=== PATIENT | male | born 2000 | race Caucasian/White ===

== ENCOUNTER 2023-06-21 08:27 | Emergency (ER) | payer BC, SELFPAY ==
[2023-06-21] VITALS (12 sets, daily range): BP systolic 130–159; BP diastolic 71–93; PULSE 99–124; RESP 12–24; TEMP 37.1; O2SAT 97–100; BMI 35.9
--- NOTE | 2023-06-21 08:44 | ECG_ITS ---
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
[2023-06-21 09:19] LABS: Basophils Absolute Auto 0.1 10^3/uL (0.0-0.1); Basophils Percent Auto 0.8 % (0.2-2.0); Eosinophils Absolute Auto 0.1 10^3/uL (0.0-0.7); Eosinophils Percent Auto 0.5 % (0.9-7.0); Hematocrit 45.8 % (42.0-54.0); Hemoglobin 15.6 g/dL (14.0-18.0); Immature Granulocytes Abs Auto 0.04 10^3/uL (0.00-0.03); Immature Granulocytes Pct Auto 0.4 % (0.0-0.5); Lymphocytes Absolute Auto 1.3 10^3/uL (1.2-3.8); Lymphocytes Percent Auto 14.1 % (20.5-60.0); Mean Corpuscular HGB Conc 34.1 g/dL (29.9-35.2); Mean Corpuscular Hemoglobin 29.9 pg (25.9-34.0); Mean Corpuscular Volume 87.7 fL (80.0-94.0); Mean Platelet Volume 9.7 fL (9.5-13.5); Monocytes Absolute Auto 0.6 10^3/uL (0.3-0.8); Monocytes Percent Auto 6.3 % (1.7-12.0); Neutrophils Absolute Auto 7.3 10^3/uL (1.4-6.5); Neutrophils Percent Auto 77.9 % (43.0-75.0); Platelet Count 324 10^3/uL (150-450); Red Blood Count 5.22 10^6/uL (4.70-6.10); Red Cell Distribution Width 12.9 % (11.0-15.0); White Blood Count 9.3 10^3/uL (4.0-11.0)
[2023-06-21 09:30] LABS: Anion Gap 15.2; BUN Creatinine Ratio 14.7; Calcium 9.7 mg/dL (8.5-10.1); Carbon Dioxide 26.8 mmol/L (21.0-32.0); Chloride 103 mmol/L (98-107); Estimated GFR (African America >60 (>=60); Estimated GFR (Non-African Ame >60 (>=60); Glucose 112 mg/dL (74-106); Sodium 141 mmol/L (136-145)
--- NOTE | 2023-06-21 09:44 | ED.GENADUL1 ---
HPI - General Adult General Chief complaint: Recheck/Abnormal Lab/Rx Stated complaint: BLOOD PRESSURE HIGH Time Seen by Provider: 06/21/23 08:34 Source: patient Mode of arrival: walk-in Limitations: no limitations History of Present Illness HPI narrative: 23-year-old male presented for elevated blood pressure. He does not have a personal history of hypertension. He checked it at home and it was quite high so he came in here. He states sometimes when he goes to see a doctor his blood pressure goes up as does his heart rate. He does not have any physical complaints such as fever or vomiting or chest pain. He is accompanied by his mother. Related Data Allergies Allergy/AdvReac Type Severity Reaction Status Date / Time amoxicillin Allergy Unknown Verified 06/21/23 08:32 Review of Systems ROS Narrative A ten point review of systems is negative except as noted above. Exam Narrative Exam Narrative: Nurses note and vital signs reviewed and patient is not hypoxic. General: The patient appears well and in no apparent distress. Patient is resting comfortably on cart. Skin: Warm, dry, no pallor noted. There is no rash noted. Head: Normocephalic, atraumatic Eye: Normal conjunctiva, no drainage Ears, Nose, Mouth, and Throat: oral mucosa is moist. Nares patent. Cardiovascular: Regular Rate and Rhythm, tachycardic Respiratory: Patient is in no distress, no accessory muscle use, lungs are clear to auscultation, no wheezing, rales or rhonchi Back: non-tender GI: Soft and nontender Musculoskeletal: The patient has no evidence of calf tenderness, no pitting edema, symmetrical pulses noted bilaterally Neurological: A&O, normal speech Psychiatric: Cooperative Constitutional Vital Signs, click to edit/add: Last Vital Signs Temp 98.8 F 06/21/23 08:32 Pulse 101 H 06/21/23 09:20 Resp 18 06/21/23 09:20 BP 136/93 H 06/21/23 09:15 Pulse Ox 98 06/21/23 09:20 O2 Del Method Room Air 06/21/23 08:32 Course Vital Signs Vital signs: Vital Signs Temperature 98.8 F 06/21/23 08:32 Pulse Rate 120 H 06/21/23 08:32 Respiratory Rate 16 06/21/23 08:32 Blood Pressure 159/80 H 06/21/23 08:32 Pulse Oximetry 100 06/21/23 08:32 Oxygen Delivery Method Room Air 06/21/23 08:32 Temperature 98.8 F 06/21/23 08:32 Pulse Rate 101 H 06/21/23 09:20 Respiratory Rate 18 06/21/23 09:20 Blood Pressure 136/93 H 06/21/23 09:15 Pulse Oximetry 98 06/21/23 09:20 Oxygen Delivery Method Room Air 06/21/23 08:32 Medical Decision Making MDM Narrative Medical decision making narrative: Repeat blood pressure readings are much improved and his heart rate has come down. He has a new PCP appointment in 2 weeks which he will keep. Treatment diagnosis and follow-up were discussed with the patient and his mother Differential Diagnosis Differential Diagnosis: Hypertension, anxiety Lab Data Lab results reviewed: Yes I reviewed the patient's lab results Labs: Lab Results 06/21/23 Range/Units 09:10 WBC 9.3 (4.0-11.0) 10^3/uL RBC 5.22 (4.70-6.10) 10^6/uL Hgb 15.6 (14.0-18.0) g/dL Hct 45.8 (42.0-54.0) % MCV 87.7 (80.0-94.0) fL MCH 29.9 (25.9-34.0) pg MCHC 34.1 (29.9-35.2) g/dL RDW 12.9 (11.0-15.0) % Plt Count 324 (150-450) 10^3/uL MPV 9.7 (9.5-13.5) fL Neut % (Auto) 77.9 H (43.0-75.0) % Lymph % (Auto) 14.1 L (20.5-60.0) % Gilchrist % (Auto) 6.3 (1.7-12.0) % Eos % (Auto) 0.5 L (0.9-7.0) % Baso % (Auto) 0.8 (0.2-2.0) % Neut # (Auto) 7.3 H (1.4-6.5) 10^3/uL Lymph # (Auto) 1.3 (1.2-3.8) 10^3/uL Gilchrist # (Auto) 0.6 (0.3-0.8) 10^3/uL Eos # (Auto) 0.1 (0.0-0.7) 10^3/uL Baso # (Auto) 0.1 (0.0-0.1) 10^3/uL Abs Immat Gran (auto) 0.04 H (0.00-0.03) 10^3/uL Imm/Tot Granulo (auto) 0.4 (0.0-0.5) % Sodium 141 (136-145) mmol/L Potassium 4.0 (3.5-5.1) mmol/L Chloride 103 (98-107) mmol/L Carbon Dioxide 26.8 (21.0-32.0) mmol/L Anion Gap 15.2 BUN 15.0 (7.0-18.0) mg/dL Creatinine 1.02 (0.70-1.30) mg/dL Est GFR ( Amer) >60 (>=60) Est GFR (Non-Af Amer) >60 (>=60) BUN/Creatinine Ratio 14.7 Glucose 112 H (74-106) mg/dL Calcium 9.7 (8.5-10.1) mg/dL ECG Data Attestation: I personally reviewed and interpreted this ECG as follows: (EKG on my interpretation shows sinus tachycardia with a rate of 117.) Discharge Plan Discharge Chief Complaint: Recheck/Abnormal Lab/Rx Clinical Impression: Elevated blood pressure reading Patient Disposition: Home, Self-Care Time of Disposition Decision: 09:43 Condition: Good Mode of Transportation: Private Vehicle Instructions: Hypertension (ED) Additional Instructions: Keep your new PCP appointment in 2 weeks to have your blood pressure rechecked Stand Alone Forms: Portal Instructions Referrals: Physician,Non-Staff, MD [Primary Care Provider] - 1 week
== END 2023-06-21 09:53 | disposition home or self-care (01) ==
PROVIDERS: Emergency Provider Emergency Medicine
DX: R03.0 Elevated blood-pressure reading, without diagnosis of hypertension (principal)
CPT/HCPCS: 36415; 80048; 85025; 93005; 99284

== ENCOUNTER 2025-04-28 07:35 | Emergency (ER) | payer OTHER, SELFPAY ==
[2025-04-28 07:50] VITALS: BP 137/98; PULSE 94; TEMP 36.7; O2SAT 100; BMI 37.5
--- NOTE | 2025-04-28 07:53 | XR_ITS ---
The [address] [address] Patient Name: PEÑA ALLEN MRN: [id number] date: 2000 Sex: M Assigned Patient Location: ED.MAIN Current Patient Location: ED.MAIN Accession/Order Number: [id number] Exam Date: 04/28/2025 08:00 Report Date: 04/28/2025 08:32 At the request of: ANGIE WOODWARD MD Procedure: XR hand RT min 3V RIGHT HAND - 3 views REASON FOR EXAM: Right third finger injury. COMPARISON: None FINDINGS: Soft tissue swelling is noted involving the third digit. No radiopaque foreign body. No acute bony process is noted. No bony erosions. XR/XR hand RT min 3V IMPRESSION: SOFT TISSUE SWELLING WITHOUT ACUTE BONY PROCESS. Impression dictated by: Donovan Parsons Jr., D.O. 04/28/2025 8:32 AM Dictation Location: [place] [address] Electronically authenticated by: [id number] Y Date: 04/28/2025 08:32
--- NOTE | 2025-04-28 07:59 | ED_ITS ---
HPI HPI - General Adult General Chief complaint: Extremity Injury, Upper Stated complaint: BWC;RMF INJURY Time Seen by Provider: 04/28/25 07:46 Source: patient Mode of arrival: walk-in History of Present Illness HPI narrative: 24-year-old male presented for injury to his right third finger. He is right- handed. Just before coming into the emergency department his finger was caught between metal and a bull and smashed. No other injury was sustained. There was bleeding which was controlled with pressure. The other fingers do not hurt. Related Data Home Medications ?Medication ?Instructions ?Recorded ?Confirmed amlodipine 10 mg tablet 10 mg PO DAILY 04/28/2504/08 metoprolol tartrate 100 mg tablet 100 mg PO Q12H 04/2804/28/25 Allergies Allergy/AdvReac Type Severity Reaction Status Date / Time amoxicillin Allergy Unknown rash Verified 04/28/25 07:49 Opioid HPI Opioid Management Most Recent Opioid Data: Last Pain Scale 6 Today, 07:52 Review of Systems ROS Narrative A ten point review of systems is negative except as noted above. PFSH PFSH Social History Little interest or pleasure in doing things: not at all Feeling down, depressed, or hopeless: not at all Exam Narrative Exam Narrative: Nurses note and vital signs reviewed General:The patient appears in no acute distress Skin:Warm, dry, no pallor noted.There is no rash noted. Head:Normocephalic, atraumatic Eye: Normal conjunctiva, no drainage Ears, Nose, Mouth, and Throat: oral mucosa is moist. Nares patent. Cardiovascular:Regular Rate and Rhythm Respiratory:Patient is in no distress, no accessory muscle use Back:non-tender GI: Soft and nontender Musculoskeletal: The right hand is examined. The 1st, 2nd, 4th and 5th fingers are nontender and have good range of motion. He has superficial skin avulsion at the right third finger PIP joint on the extensor side and a tiny abrasion at the DIP. Both of these joints have good range of motion. Neurological: Awake and alert Psychiatric:Cooperative Constitutional Vital Signs, click to edit/add: Last Vital Signs Temp 98.1 F 04/28/25 07:50 Pulse 94 H 04/28/25 07:50 Resp 15 04/28/25 07:50 BP 137/98 H 04/28/25 07:50 Pulse Ox 100 04/28/25 07:50 O2 Del Method Room Air 04/28/25 07:50 Course Vital Signs Vital signs: Vital Signs Temperature 98.1 F 04/28/25 07:50 Pulse Rate 94 H 04/28/25 07:50 Respiratory Rate 15 04/28/25 07:50 Blood Pressure 137/98 H 04/28/25 07:50 Pulse Oximetry 100 04/28/25 07:50 Oxygen Delivery Method Room Air 04/28/25 07:50 Temperature 98.1 F 04/28/25 07:50 Pulse Rate 94 H 04/28/25 07:50 Respiratory Rate 15 04/28/25 07:50 Blood Pressure 137/98 H 04/28/25 07:50 Pulse Oximetry 100 04/28/25 07:50 Oxygen Delivery Method Room Air 04/28/25 07:50 Medical Decision Making MDM Narrative Medical decision making narrative: X-ray my interpretation shows no fracture. Sutures are not indicated. Tetanus status is updated. Tube gauze applied, application checked by me and found to be appropriate, he is neurovascularly intact. He was sent home with a finger splint and will remove the tube gauze in 48 hours and use the splint. Treatment diagnosis and follow-up were discussed with the patient. Differential Diagnosis Differential Diagnosis: Skin avulsion, laceration, fracture Imaging Data Right hand x-ray: My impression: No fracture Discharge Plan Discharge Chief Complaint: Extremity Injury, Upper Clinical Impression: Avulsion of skin of finger Patient Disposition: Home, Self-Care Time of Disposition Decision: 08:18 Condition: Good Mode of Transportation: Private Vehicle Prescriptions / Home Meds: No Action metoprolol tartrate 100 mg tablet 100 mg PO Q12H amlodipine 10 mg tablet 10 mg PO DAILY Print Language: Bulgarian Instructions: Skin Avulsion (ED) Additional Instructions: Leave tube gauze on for 48 hours. Remove and apply bandage and wear splint for 1 week. Change bandage daily. Referrals: JOSH VANEGAS [Primary Care Provider, PRODUCTION BROACHING MACHINE OPERATOR] - 1 week
[2025-04-28] MEDS: DIPHTH,PERTUSS(ACELL),TET VAC 0.5 ML SYRINGE IM (08:31)
== END 2025-04-28 08:49 | disposition home or self-care (01) ==
PROVIDERS: Emergency Provider Emergency Medicine; PCP Nurse Practitioner
DX: S61.212A Laceration without foreign body of right middle finger without damage to nail, initial encounter (principal); Y93.89 Activity, other specified; S60.412A Abrasion of right middle finger, initial encounter; Z23 Encounter for immunization
CPT/HCPCS: 73130; 90471; 90715; 99284